=== PATIENT | male | born 1975 | race Caucasian/White ===

== ENCOUNTER 2018-01-25 13:57 | Outpatient (CLI) | payer OTHER ==
[~2018-01-25 13:57] MED LIST: NASONEX17 GM NS; PAXIL20 MG PO; SINUS NS
== END 2018-01-25 14:24 | disposition home or self-care, planned readmission (81) ==
LOC: RAD 13:57
DX: M24.541 Contracture, right hand (principal); M24.521 Contracture, right elbow

== ENCOUNTER 2022-03-08 09:36 | Outpatient (CLI) | payer OTHER | END 2022-03-08 09:46 | disposition home or self-care (01) | LOC: RAD 09:36 | PROVIDERS: ATTEND Orthopaedic Surgery Hand Surgery | DX: M77.11 Lateral epicondylitis, right elbow (principal) ==

== ENCOUNTER 2022-05-05 08:31 | Outpatient (CLI) | payer OTHER | END 2022-05-05 15:52 | disposition home or self-care (01) | LOC: TOM 08:31 | PROVIDERS: ATTEND Orthopaedic Surgery Hand Surgery | DX: M24.521 Contracture, right elbow (principal) ==

== ENCOUNTER 2023-07-28 07:24 | Outpatient (CLI) | payer OTHER | END 2023-07-28 07:25 | disposition home or self-care (01) | LOC: RAD 07:24 | PROVIDERS: ATTEND Internal Medicine Cardiovascular Disease | DX: M46.47 Discitis, unspecified, lumbosacral region (principal); J44.9 Chronic obstructive pulmonary disease, unspecified ==